=== PATIENT | female | born 1970 | race American Indian/Alaskan Native ===

== ENCOUNTER 2018-12-02 08:14 | Outpatient (CLI) | payer OTHER ==
--- NOTE | 2018-12-02 09:12 | Mammography Report ---
Screening mammogram: Routine views are obtained. Prior breast reduction surgery. In the inferomedial right breast there is a circumscribed asymmetry measuring approximately 8.5 mm and in the upper outer left breast there is a 5.7 mm circumscribed asymmetry. The remainder the breast pattern is fatty replaced and unremarkable. CAD used. Recommendation: Additional spot compression imaging of the bilateral asymmetries. Ultrasound is needed. If you or the patient can locate her prior exams for comparison the preceding recommendation may be avoided. BI-RADS CATEGORY: 0 = Needs additional imaging evaluation ACR BI-RADS MAMMOGRAPHIC CODES: 0 = Needs additional imaging evaluation; 1 = Negative; 2 = Benign; 3 = Probably benign; 4 = Suspicious; 5 = Malignant; 6 = Known biopsy-proven malignancy COMMENT: 1. Dense breast tissue, i.e., adenosis, fibrocystic changes, etc., may obscure an underlying neoplasm. 2. Approximately 10% of cancers are not detected with mammography. 3. A negative mammography report should not delay biopsy if a clinically suspicious mass is present.
== END 2018-12-02 08:15 | disposition home or self-care (01) ==
LOC: SPVWC 08:14
PROVIDERS: ATTEND Family Medicine
DX: Z12.31 Encounter for screening mammogram for malignant neoplasm of breast (principal)
CPT/HCPCS: 77067

== ENCOUNTER 2019-02-23 08:24 | Outpatient (CLI) | payer OTHER ==
--- NOTE | 2019-02-23 11:13 | Ultrasound Report ---
BILATERAL DIGITAL DIAGNOSTIC MAMMOGRAM and BILATERAL BREAST ULTRASOUND: 02/23/19 08:24:00 CLINICAL: Recalled for asymmetries. COMPARISON:12/02/18 screening FINDINGS: Bilateral spot compression views were obtained and bilateral low-density circumscribed asymmetries persist. Ultrasound of thelower inner right breast was performed and demonstrated normal structures with no mass, cyst or shadowing. Ultrasound of the upper outer left breast was performed and demonstrated a benign intramammary lymph node at 3 o'clock 5 cm from the nipple. It measures 5 x 2 x 5 mm and correlates with the mammographic density. No mass, cyst or shadowing. IMPRESSION: A benign right mammographic asymmetry and a benign left intramammary lymph node. BI-RADS CATEGORY: 2 - - Benign RECOMMENDATION: Routine mammographic screening in one year. COMMENT: 1. Dense breast tissue, i.e., adenosis, fibrocystic changes, etc., may obscure an underlying neoplasm. 2. Approximately 10% of cancers are not detected with mammography. 3. A negative mammography report should not delay biopsy if a clinically suspicious mass is present. COMMENT: Patient follow-up letters are generated via our [email or web address] application.
== END 2019-02-23 08:25 | disposition home or self-care (01) ==
LOC: SPVWC 08:24
PROVIDERS: ATTEND Family Medicine
DX: N64.89 Other specified disorders of breast (principal)
CPT/HCPCS: 77066

== ENCOUNTER 2020-02-16 10:30 | Outpatient (CLI) | payer OTHER ==
--- NOTE | 2020-02-16 11:56 | Mammography Report ---
DIGITAL SCREENING MAMMOGRAM WITH CAD, 02/16/2020 INDICATION: Routine screening mammography. TECHNIQUE: Digital bilateral 2D mammography was obtained in the craniocaudal and mediolateral obliq ue projections. This examination was interpreted with the benefit of Computer-Aided Detection analysi s. COMPARISON: 12/02/2018 FINDINGS: Breast Density: The breasts are almost entirely fatty. There is no evidence of dominant mass, suspicious calcifications or architectural distortion in eithe r breast. Bilateral change consistent with history of reduction mammoplasty are present. No interval change. IMPRESSION: No evidence of malignancy. Follow up recommendation: Routine yearly BI-RADS Category 2: Benign. A "normal" or negative report should not discourage follow up or biopsy of a clinically significant f inding. A written summary of these findings will be mailed to the patient. The patient will be entered into a mammography reporting system which will generate a reminder letter for the patient's next appointmen t at the appropriate interval. The [employer] recommends yearly mammograms starting at age 40 and continuing as l tasha as a woman is in good health. Breast MRI is recommended for women with an approximate 20-25% or greater lifetime risk of breast cancer, including women with a strong family history of breast or ova cain cancer or who have been treated for Hodgkin's disease. Signer Name: Latoya Chowdhury MD Signed: 02/16/2020 11:52 AM Workstation Name: [id number]
== END 2020-02-16 10:31 | disposition home or self-care (01) ==
LOC: SPVWC 10:30
PROVIDERS: ATTEND Family Medicine
DX: Z12.31 Encounter for screening mammogram for malignant neoplasm of breast (principal)
CPT/HCPCS: 77067

== ENCOUNTER 2021-03-08 11:07 | Outpatient (CLI) | payer OTHER ==
--- NOTE | 2021-03-08 18:21 | Mammography Report ---
DIGITAL SCREENING MAMMOGRAM WITH CAD, 03/08/2021 CLINICAL INFORMATION / INDICATION: Routine screening mammography. SCREENING MAMMO TECHNIQUE: Digital bilateral 2D mammography was obtained in the craniocaudal and mediolateral obliqu e projections. This examination was interpreted with the benefit of Computer-Aided Detection analysis . COMPARISON: 02/16/2020, 12/02/2018 FINDINGS: Breast Density: The breasts are almost entirely fatty. No dominant mass, suspicious calcifications, or architectural distortion in either breast. Postreduction mammoplasty changes are seen in both breasts. IMPRESSION: No mammographic evidence of malignancy. Follow up recommendation: Routine yearly BI-RADS Category 2: Benign. A "normal" or negative report should not discourage follow up or biopsy of a clinically significant f inding. A written summary of these findings will be mailed to the patient. The patient will be entered into a mammography reporting system which will generate a reminder letter for the patient's next appointmen t at the appropriate interval. The [employer] recommends yearly mammograms starting at age 40 and continuing as l tasha as a woman is in good health. Breast MRI is recommended for women with an approximate 20-25% or greater lifetime risk of breast cancer, including women with a strong family history of breast or ova cain cancer or who have been treated for Hodgkin's disease. Signer Name: Ayush Zabala DO Signed: 03/08/2021 6:17 PM Workstation Name: [id number]
== END 2021-03-08 11:08 | disposition home or self-care (01) ==
LOC: SPVWC 11:07
PROVIDERS: ATTEND Obstetrics & Gynecology
DX: Z12.31 Encounter for screening mammogram for malignant neoplasm of breast (principal); Z98.82 Breast implant status
CPT/HCPCS: 77067

== ENCOUNTER 2022-03-25 11:26 | Outpatient (CLI) | payer OTHER ==
--- NOTE | 2022-03-27 17:00 | Mammography Report ---
DIGITAL SCREENING MAMMOGRAM WITH CAD, 03/25/2022 CLINICAL INFORMATION / INDICATION: Routine screening mammography. SCREENING MAMMO TECHNIQUE: Digital bilateral 2D mammography was obtained in the craniocaudal and mediolateral obliqu e projections. This examination was interpreted with the benefit of Computer-Aided Detection analysis . COMPARISON: 03/08/2021. FINDINGS: Breast Density: The breasts are almost entirely fatty. No dominant mass, suspicious calcifications, or architectural distortion in either breast. IMPRESSION: No mammographic evidence of malignancy. Follow up recommendation: Routine yearly screening mammogram. BI-RADS Category 1: NEGATIVE A "normal" or negative report should not discourage follow up or biopsy of a clinically significant f inding. A written summary of these findings will be mailed to the patient. The patient will be entered into a mammography reporting system which will generate a reminder letter for the patient's next appointmen t at the appropriate interval. The [employer] recommends yearly mammograms starting at age 40 and continuing as l tasha as a woman is in good health. Breast MRI is recommended for women with an approximate 20-25% or greater lifetime risk of breast cancer, including women with a strong family history of breast or ova cain cancer or who have been treated for Hodgkin's disease. Signer Name: Zain Jensen MD Signed: 03/27/2022 4:56 PM Workstation Name: [id number]
== END 2022-03-25 11:27 | disposition home or self-care (01) ==
LOC: SPVWC 11:26
PROVIDERS: ATTEND Obstetrics & Gynecology
DX: Z12.31 Encounter for screening mammogram for malignant neoplasm of breast (principal)
CPT/HCPCS: 77067